=== PATIENT | female | born 1960 ===

== ENCOUNTER 2020-12-27 10:55 | Outpatient (CLI) | payer OTHER | END 2020-12-27 11:16 | disposition home or self-care (01) | LOC: SONOGRAMA 10:55 | PROVIDERS: ATTEND Surgery | DX: D24.2 Benign neoplasm of left breast (principal); R92.0 Mammographic microcalcification found on diagnostic imaging of breast; N60.11 Diffuse cystic mastopathy of right breast; N60.12 Diffuse cystic mastopathy of left breast ==